=== PATIENT | female | born 1990 | race Caucasian/White ===

== ENCOUNTER 2023-12-16 12:50 | Emergency (ER) | payer BC, OTHER ==
[2023-12-16] MEDS: Diphtheria,Pertussis(Acell),Tetanus Vaccine 0.5 ML Syringe IM ONE (13:39)
== END 2023-12-16 13:52 | disposition home or self-care (01) ==
LOC: KA.ED 12:50
DX: S61.213A Laceration without foreign body of left middle finger without damage to nail, initial encounter (principal); Z23 Encounter for immunization; W27.5XXA Contact with paper-cutter, initial encounter
CPT/HCPCS: 12002; 90471; 90715; 99282-25

== ENCOUNTER 2024-11-24 21:55 | Emergency (ER) | payer BC, OTHER ==
[2024-11-24] MEDS: diphenhydrAMINE 50 MG/ML SDV IVPUSH ONE (22:18)
[2024-11-24] MEDS: Ketorolac 30 MG/ML SDV IVPUSH ONE (22:19)
[2024-11-24] MEDS: Ondansetron 4 MG/2 ML SDV IVPUSH ONE (22:19)
[2024-11-24] MEDS: Labetalol 100 MG/20 ML MDV IVPUSH ONE (23:21)
== END 2024-11-24 23:53 | disposition home or self-care (01) ==
LOC: KA.ED 21:55
DX: G43.909 Migraine, unspecified, not intractable, without status migrainosus (principal); R03.0 Elevated blood-pressure reading, without diagnosis of hypertension
CPT/HCPCS: 96374; 96375; 99283-25; 99284; J1200; J1885; J1920; J2405; J7030